=== PATIENT | female | born 1990 | race Two or more races ===

== ENCOUNTER 2016-07-18 21:52 | Inpatient (IN) | payer OTHER ==
[2016-07-18] MEDS ORDERED: DEXTROSE 5%-LACTATED RINGERS 500 ML IV ONE ×2 (22:45→23:45)
[2016-07-18 23:14] LABS: MCH 32.4 pg (25.7-33.7); MCHC 33.6 g/dl (32.0-36.0); MEAN CELL VOLUME 96.6 fl (80-96); MEAN PLT VOLUME 9.3 fl (7.5-11.1); PLATELET COUNT 172 K/MM3 (134-434); RDW 12.5 % (11.6-15.6); WHITE BLOOD COUNT 25.8 K/mm3 (4.0-10.0)
[2016-07-18 23:16] LABS: URINE APPEARANCE SLCLOUDY; URINE BILIRUBIN NEGATIVE (NEGATIVE); URINE COLOR DKYELLOW; URINE GLUCOSE (UA) NEGATIVE (NEGATIVE); URINE KETONE TRACE (NEGATIVE); URINE NITRITE POSITIVE (NEGATIVE); URINE UROBILINOGEN 2.0 E.U/dl E.U./dl (0.2-1.0)
[2016-07-18 23:18] LABS: URINE BLOOD 2+ (NEGATIVE); URINE LEUK ESTERASE 2+ (NEGATIVE); URINE PROTEIN 2+ (NEGATIVE)
[2016-07-18 23:22] LABS: URINE BACTERIA FEW /hpf (NONE SEEN); URINE MUCUS MANY; URINE RBC 128 /hpf (0-3); URINE WBC 60 /hpf (3-5)
[2016-07-18 23:46] LABS: ALBUMIN 2.7 g/dl (3.4-5.0); ALK PHOS 116 U/L (45-117); ANION GAP 10 (8-16); BILIRUBIN,TOTAL 0.2 mg/dL (0.2-1.0); CALCIUM 8.3 mg/dL (8.5-10.1); CO2 24 mmol/L (21-32); CREATININE 0.7 mg/dL (0.55-1.02); GLUCOSE,RANDOM 102 mg/dL (74-106); SGOT/AST 18 U/L (15-37); SGPT/ALT 14 U/L (12-78); TOT PROT 5.9 g/dl (6.4-8.2)
[2016-07-19] MEDS ORDERED: cefTRIAXone 1 GM/50 ML BAG (PRE-DOCKED) IVPB ONE (00:45)
[2016-07-19] MEDS: ELECTROLYTE-148 SOLN 1,000 ML IV SCH ×2 (01:00→09:01)
[2016-07-19] MEDS: ACETAMINOPHEN 325 MG TABLET (FP) PO PRN ×4 (01:05→20:53)
[2016-07-19 01:46] LABS: BASOPHIL 0.2 % (0-2.0); EOSINOPHIL 0.2 % (0-4.5); MCH 32.4 pg (25.7-33.7); MCHC 33.9 g/dl (32.0-36.0); MEAN CELL VOLUME 95.6 fl (80-96); MEAN PLT VOLUME 9.2 fl (7.5-11.1); NEUTROPHILS 87.2 % (42.8-82.8); PLATELET COUNT 166 K/MM3 (134-434); RDW 12.5 % (11.6-15.6); WHITE BLOOD COUNT 26.1 K/mm3 (4.0-10.0)
[2016-07-19 02:01] LABS: ANISOCYTOSIS 1+; PLATELET ESTIMATE ADEQUATE (NORMAL); SPHEROCYTE 1+
[2016-07-19 02:05] LABS: INR 1.05 (0.82-1.09); PROTHROMBIN TIME (PATIENT) 11.6 SEC (9.98-11.88)
[2016-07-19 02:05] LABS: URINE MARIJUANA THC POSITIVE ng/ml (CUTOFF=50)
[2016-07-19 02:18] LABS: ALBUMIN 2.7 g/dl (3.4-5.0); ALK PHOS 120 U/L (45-117); ANION GAP 12 (8-16); BILIRUBIN,TOTAL 0.2 mg/dL (0.2-1.0); CALCIUM 8.3 mg/dL (8.5-10.1); CO2 22 mmol/L (21-32); CREATININE 0.7 mg/dL (0.55-1.02); GLUCOSE,RANDOM 119 mg/dL (74-106); SGOT/AST 18 U/L (15-37); SGPT/ALT 13 U/L (12-78); TOT PROT 6.1 g/dl (6.4-8.2)
[2016-07-19 02:37] LABS: HIV 1 & 2 AB NEGATIVE; HIV 1 AGp24 NEGATIVE
[2016-07-19] MEDS: oxyCODONE HCL 5 MG TABLET PO PRN ×5 (04:20→23:46)
[2016-07-19 04:44] VITALS: BMI 27.3
[2016-07-19] MEDS ORDERED: oxyCODONE HCL 5 MG TABLET PO ONE (08:00)
[2016-07-19] MEDS ORDERED: ACETAMINOPHEN 325 MG TABLET (FP) PO ONE (09:30)
--- NOTE | 2016-07-19 09:39 | HP ---
Past Medical History - Primary Care Physician PCP:: Rubio Roger - Admission Chief Complaint: 31 weeks, fever, chills ,RT flank pain History of Present Illness: 25 yo f g 4 p2o12 edc 09/16/16 31 weeks , her care in [place], no cahrt available c/o of 2 days rt fank pain and fever, no dysuria, no n/v or diarrhea, History Source: Patient Limitations to Obtaining History: No Limitations - Past Medical History ...: 4 ...Para: 2 ...Term: 2 ...: 0 ...Spon : 1 ...Induced : 0 ...EDC by [facility]: 09/16/16 Heme/Onc: Yes: Anemia - Past Surgical History Hx Myomectomy: No Hx Transabdominal Cerclage: No - Smoking History Smoking history: Current every day smoker Have you smoked in the past 12 months: Yes Aproximately how many cigarettes per day: 5 - Alcohol/Substance Use Hx Alcohol Use: No History of Substance Use: reports: Cocaine, Marijuana - Social History History of Recent Travel: No Home Medications - Allergies Allergies/Adverse Reactions: Allergies Allergy/AdvReac Type Severity Reaction Status Date / Time No Known Allergies Allergy Verified 07/18/16 23:07 - Home Medications Home Medications: Ambulatory Orders Acetaminophen [Tylenol Extra Strength] 500 mg PO PRN PRN 07/18/16 Pnv95/Ferrous Fumarate/FA [ Vitamin Tablet] 1 each PO DAILY 07/18/16 Review of Systems - Review of Systems Constitutional: reports: Night Sweats Eyes: reports: No Symptoms HENT: reports: No Symptoms Neck: reports: No Symptoms Cardiovascular: reports: No Symptoms Respiratory: reports: No Symptoms Gastrointestinal: reports: Abdominal Pain Genitourinary: reports: Frequency, Urgency Breasts: reports: No Symptoms Reported Musculoskeletal: reports: Back Pain Integumentary: reports: No Symptoms Neurological: reports: No Symptoms Endocrine: reports: No Symptoms Hematology/Lymphatic: reports: No Symptoms Psychiatric: reports: No Symptoms Pain Intensity: 8 Physical Exam - Maternity Vital Signs: Vital Signs Temperature 101.7 F H 07/19/16 09:00 Pulse Rate 106 H 07/19/16 09:00 Respiratory Rate 20 07/19/16 09:00 Blood Pressure 107/50 07/19/16 09:00 O2 Sat by Pulse Oximetry (%) Constitutional: Yes: Well Nourished, No Distress, Calm Eyes: Yes: WNL, Conjunctiva Clear, EOM Intact HENT: Yes: WNL, Atraumatic, Normocephalic Neck: Yes: WNL, Supple, Trachea Midline Cardiovascular: Yes: WNL, Regular Rate and Rhythm Breast(s): Yes: WNL - Abdominal Exam/OB Fundal Height: 30 Number of Fetuses: Single Presentation: Vertex Contractions: Yes Regularity: Irritability Intensity: Unaware Monitor Mode: External Heart Rate Location: [facility] Category: I Accelerations: Uniform Decelerations: None - Vaginal Exam/OB Vaginal Bleediing: No Speculum Exam: No Dilatation (cm): 0 Effacement (%): 0 Amniotic Membrane Status: Intact Presentation: Vertex/Position Station: -3 - Physical Exam Musculoskeletal: Yes: Back Pain Extremities: Yes: WNL Edema: Yes Edema: LLE: Trace, RLE: Trace Deep Tendon Reflex Grade: Normal +2 - Labs Lab Results: CBC, BMP 07/19/16 01:15 07/19/16 01:15 Hemorrhage Risk Assessment - Risk Factors Medium Risk Factors: Yes: None High Risk Factors: Yes: None Risk Score: 1 Risk Level: Medium Risk Problem List - Problems (1) with 31 completed weeks gestation Code(s): Z3A.31 - 31 WEEKS GESTATION OF (2) Pyelonephritis affecting in third trimester Code(s): O23.03 - INFECTIONS OF KIDNEY IN , THIRD TRIMESTER N12 - TUBULO-INTERSTITIAL NEPHRITIS, NOT SPCF ACUTE OR CHRONIC (3) Substance abuse affecting in third trimester, antepartum Code(s): O99.323 - DRUG USE COMPLICATING , THIRD TRIMESTER F19.10 - OTHER PSYCHOACTIVE SUBSTANCE ABUSE, UNCOMPLICATED (4) Sepsis Code(s): A41.9 - SEPSIS, UNSPECIFIED ORGANISM Qualifiers: Sepsis type: sepsis due to unspecified organism Qualified Code(s): A41.9 - Sepsis, unspecified organism Assessment/Plan paln admit, iv hydration, septic work up, iv antibiotic. ID consult, fetla heart monitoring
--- NOTE | 2016-07-19 11:55 | PN ---
Progress Note (short form) - Note Progress Note: ID Consult dictated Probable acute R pyelonephritis Leukocytosis 31w IUP Pendng c/s empiric ceftriaxone 2gm IVPB q24h
[2016-07-19] MEDS ORDERED: CEFTRIAXONE 100 ML IVPB SCH (12:00)
[2016-07-19] MEDS ORDERED: SODIUM CHLORIDE 1,500 ML IV ONE (13:30)
[2016-07-19 13:58] LABS: BASOPHIL 0.1 % (0-2.0); EOSINOPHIL 0.1 % (0-4.5); MCHC 33.5 g/dl (32.0-36.0); MEAN CELL VOLUME 95.3 fl (80-96); MEAN PLT VOLUME 8.6 fl (7.5-11.1); NEUTROPHILS 83.6 % (42.8-82.8); PLATELET COUNT 137 K/MM3 (134-434); RDW 12.4 % (11.6-15.6); WHITE BLOOD COUNT 24.9 K/mm3 (4.0-10.0)
[2016-07-19] MEDS: SODIUM CHLORIDE 1,000 ML IV SCH ×2 (14:00→18:00)
[2016-07-19 14:12] LABS: INR 1.1 (0.82-1.09); PROTHROMBIN TIME (PATIENT) 12.1 SEC (9.98-11.88)
[2016-07-19 14:14] LABS: ACTIVATED PTT 29.6 SECONDS (26.9-34.4)
[2016-07-19 14:28] LABS: ALBUMIN 2.3 g/dl (3.4-5.0); ALK PHOS 104 U/L (45-117); ANION GAP 12 (8-16); BILIRUBIN,TOTAL 0.3 mg/dL (0.2-1.0); CALCIUM 7.8 mg/dL (8.5-10.1); CO2 21 mmol/L (21-32); CREATININE 0.6 mg/dL (0.55-1.02); GLUCOSE,RANDOM 77 mg/dL (74-106); SGOT/AST 18 U/L (15-37); SGPT/ALT 12 U/L (12-78); TOT PROT 5.3 g/dl (6.4-8.2)
--- NOTE | 2016-07-19 15:31 | CONS ---
DATE OF CONSULTATION: DATE OF DICTATION: 07/19/2016 INFECTIOUS DISEASE CONSULTATION HISTORY OF PRESENT ILLNESS: A 25-year-old female evaluated for possible pyelonephritis. The patient reports a 1-day history of right flank pain, fever and chills. Patient had developed onset of right flank pain with inability to walk secondary to the pain. She also experienced some subjective fever and chills. She denies any dysuria or hematuria. She denies recent urinary tract infection. PAST MEDICAL HISTORY: Positive for 31-week intrauterine , estimated date of confinement September 16, 2016. ALLERGIES: No known allergies. MEDICATION: Ceftriaxone. SOCIAL HISTORY: Positive for tobacco. Toxicology screen positive for cocaine and marijuana. LABORATORY DATA: White count 26.1, 87 neutrophils, 5 lymphocytes, 7 monocytes. Hematocrit 28.9, platelet count 166, BUN 6, creatinine 0.7. Total bilirubin 0.2, alkaline phosphatase 120, AST 18. Urinalysis 60 white cells, 128 red cells. Sonogram negative for hydronephrosis. PHYSICAL EXAMINATION: General: She is awake in no acute distress. Vital signs: Temperature 101.2, blood pressure 107/50, pulse 106 regular, respirations 20 per minute. HEENT: Sclerae anicteric. Cardiovascular: Heart sounds S1, S2. Respiratory: Lungs clear. Abdomen: Soft. Positive 31-week . Positive right CVA tenderness to palpation. No suprapubic tenderness. Extremities: Negative for edema. IMPRESSION: 1. Acute right pyelonephritis. 2. A 31-week intrauterine . Await culture results. Empiric antibiotic coverage with ceftriaxone 2 g IV piggyback daily pending cultures. Thank you for the kind referral. DELVIS GURROLA M.D. [id number]
--- NOTE | 2016-07-19 15:41 | CONSULT ---
Consultation: REQUESTING PROVIDER: Dr. Bejarano CONSULT REQUEST: We have been asked to medically evaluate this patient for ( specify). HISTORY OF PRESENT ILLNESS: 25 year old female , 31 weeks who presents to the hospital with flank pain, dysuria, fever, chills for 2 days. She didn't measure the temp. at home. She states that her pain is located in right lower back, radiates to right hip. The pain is 10/10, constant, no aggravating/allaviating factors. She is also complaining of generalized weakness and right sided face swelling that is present for 1-2 days. She denies having cavity, recent dental work. Last time she visited a dentist was 2-3 months ago. She denies hematuria, nausea, vomiting, diarrhea. She states that her is uncomplicated and she f/u with her [employer] in [place]. REVIEW OF SYSTEMS: CONSTITUTIONAL: fever, chills, diaphoresis, Absent: generalized weakness, malaise, weight change HEENT: Absent: rhinorrhea, nasal congestion, throat pain, throat swelling, difficulty swallowing, ear pain, eye pain, visual changes CARDIOVASCULAR: Absent: chest pain, syncope, palpitations, irregular heart rate, lightheadedness , peripheral edema RESPIRATORY: Absent: cough, shortness of breath, dyspnea with exertion, orthopnea, wheezing, stridor, hemoptysis GASTROINTESTINAL: Absent: abdominal pain, abdominal distension, nausea, vomiting, diarrhea, constipation, melena, hematochezia GENITOURINARY: dysuria, flank pain, Absent: frequency, urgency, hesitancy, genital pain MUSCULOSKELETAL: back pain, Absent: myalgia, arthralgia, joint swelling, neck pain SKIN: Absent: rash, itching, pallor NEUROLOGIC: Absent: headache, focal weakness or paresthesias, dizziness, unsteady gait, seizure, mental status changes, bladder or bowel incontinence PHYSICAL EXAMINATION Vital Signs - 24 hr 07/18/16 07/19/16 07/19/16 23:00 00:15 00:50 Temperature 98.3 F 99.9 F H 99.9 F H Pulse Rate 120 H 120 H Pulse Rate [ 120 H Left Brachial] Respiratory 18 20 20 Rate Blood Pressure 132/72 132/72 Blood Pressure 107/67 [Left Upper Arm ] 07/19/16 07/19/16 07/19/16 02:56 04:00 06:00 Temperature 98.6 F 97.6 F 98.3 F Pulse Rate 108 H 99 H 101 H Pulse Rate [ Left Brachial] Respiratory 20 20 18 Rate Blood Pressure 105/58 118/72 101/66 Blood Pressure [Left Upper Arm ] 07/19/16 07/19/16 07/19/16 07:00 08:00 09:00 Temperature 98.3 F 101.2 F H 101.7 F H Pulse Rate 102 H 109 H 106 H Pulse Rate [ Left Brachial] Respiratory 20 20 20 Rate Blood Pressure 115/62 114/66 107/50 Blood Pressure [Left Upper Arm ] 07/19/16 09:55 Temperature 101.1 F H Pulse Rate 111 H Pulse Rate [ Left Brachial] Respiratory 20 Rate Blood Pressure 112/61 Blood Pressure [Left Upper Arm ] GENERAL: Awake, alert, and fully oriented, in moderate distress. HEAD: Normal with no signs of trauma. EYES: extraocular movements intact, sclera anicteric, conjunctiva clear. No lid lag. EARS, NOSE, THROAT: oropharynx clear without exudates. Moist mucous membranes. NECK: Normal range of motion, supple without lymphadenopathy, JVD, or masses. LUNGS: Breath sounds equal, clear to auscultation bilaterally. No wheezes, and no crackles. No accessory muscle use. HEART: Regular rate and rhythm, normal S1 and S2 without murmur, rub or gallop. ABDOMEN: Gravid, soft, nontender, normoactive bowel sounds, no guarding, no rebound, no masses. MUSCULOSKELETAL: Normal range of motion at all joints. No bony deformities or tenderness. CVA tenderness on right side, tenderness over right hip. UPPER EXTREMITIES: No peripheral edema. LOWER EXTREMITIES: No peripheral edema. NEUROLOGICAL: Normal speech,no tongue deviation, normal gait. PSYCHIATRIC: Cooperative. Good eye contact. Appropriate mood and affect. SKIN: Warm, dry, normal turgor, no rashes, multiple tatoos. Laboratory Results - last 24 hr 07/18/16 07/18/16 07/18/16 23:01 23:01 23:01 WBC 25.8 H D RBC 3.06 L D Hgb 9.9 L D Hct 29.5 L D MCV 96.6 H MCHC 33.6 RDW 12.5 Plt Count 172 D MPV 9.3 D Neutrophils % 73.0 D Lymphocytes % 11.0 D Monocytes % 5.0 Eosinophils % 1.0 Basophils % Band Neutrophils 10.0 Platelet Estimate Adequate Platelet Comment Few large plts Anisocytosis 1+ Spherocytes 1+ INR PTT (Actin FS) Sodium 138 Potassium 3.7 Chloride 104 Carbon Dioxide 24 Anion Gap 10 BUN 7 D Creatinine 0.7 D Creat Clearance w eGFR > 60 Random Glucose 102 Lactic Acid Calcium 8.3 L Total Bilirubin 0.2 D AST 18 ALT 14 D Alkaline Phosphatase 116 D Total Protein 5.9 L Albumin 2.7 L D Urine Color Dkyellow Urine Appearance Slcloudy Urine pH 5.0 Ur Specific [place] 1.028 Urine Protein 2+ H Urine Glucose (UA) Negative Urine Ketones Trace H Urine Blood 2+ H Urine Nitrite Positive Urine Bilirubin Negative Urine Urobilinogen 2.0 e.u/dl H Ur Leukocyte Esterase 2+ H Urine RBC 128 Urine WBC 60 Ur Epithelial Cells Rare Urine Bacteria Few Urine Mucus Many Opiates Screen Methadone Screen Barbiturate Screen Phencyclidine Screen Ur Amphetamines Screen MDMA (Ecstasy) Screen Benzodiazepines Screen Cocaine Screen U Marijuana (THC) Screen RPR Titer HIV 1&2 Antibody Screen HIV P24 Antigen Blood Type Antibody Screen 07/19/16 07/19/16 07/19/16 01:15 01:15 01:15 WBC 26.1 H RBC 3.02 L Hgb 9.8 L Hct 28.9 L MCV 95.6 MCHC 33.9 RDW 12.5 Plt Count 166 MPV 9.2 Neutrophils % 87.2 H Lymphocytes % 5.3 L D Monocytes % 7.1 Eosinophils % 0.2 Basophils % 0.2 Band Neutrophils Platelet Estimate Platelet Comment Anisocytosis Spherocytes INR 1.05 PTT (Actin FS) Sodium 138 Potassium 3.5 Chloride 104 Carbon Dioxide 22 Anion Gap 12 BUN 6 L Creatinine 0.7 Creat Clearance w eGFR > 60 Random Glucose 119 H Lactic Acid Calcium 8.3 L Total Bilirubin 0.2 AST 18 ALT 13 Alkaline Phosphatase 120 H Total Protein 6.1 L Albumin 2.7 L Urine Color Urine Appearance Urine pH Ur Specific [place] Urine Protein Urine Glucose (UA) Urine Ketones Urine Blood Urine Nitrite Urine Bilirubin Urine Urobilinogen Ur Leukocyte Esterase Urine RBC Urine WBC Ur Epithelial Cells Urine Bacteria Urine Mucus Opiates Screen Methadone Screen Barbiturate Screen Phencyclidine Screen Ur Amphetamines Screen MDMA (Ecstasy) Screen Benzodiazepines Screen Cocaine Screen U Marijuana (THC) Screen RPR Titer HIV 1&2 Antibody Screen HIV P24 Antigen Blood Type Antibody Screen 07/19/16 07/19/16 07/19/16 01:15 01:15 01:15 WBC RBC Hgb Hct MCV MCHC RDW Plt Count MPV Neutrophils % Lymphocytes % Monocytes % Eosinophils % Basophils % Band Neutrophils Platelet Estimate Platelet Comment Anisocytosis Spherocytes INR PTT (Actin FS) 29.1 Sodium Potassium Chloride Carbon Dioxide Anion Gap BUN Creatinine Creat Clearance w eGFR Random Glucose Lactic Acid Calcium Total Bilirubin AST ALT Alkaline Phosphatase Total Protein Albumin Urine Color Urine Appearance Urine pH Ur Specific [place] Urine Protein Urine Glucose (UA) Urine Ketones Urine Blood Urine Nitrite Urine Bilirubin Urine Urobilinogen Ur Leukocyte Esterase Urine RBC Urine WBC Ur Epithelial Cells Urine Bacteria Urine Mucus Opiates Screen Methadone Screen Barbiturate Screen Phencyclidine Screen Ur Amphetamines Screen MDMA (Ecstasy) Screen Benzodiazepines Screen Cocaine Screen U Marijuana (THC) Screen RPR Titer HIV 1&2 Antibody Screen Negative HIV P24 Antigen Negative Blood Type O POSITIVE Antibody Screen Negative 07/19/16 07/19/16 07/19/16 01:15 01:20 01:45 WBC RBC Hgb Hct MCV MCHC RDW Plt Count MPV Neutrophils % Lymphocytes % Monocytes % Eosinophils % Basophils % Band Neutrophils Platelet Estimate Platelet Comment Anisocytosis Spherocytes INR PTT (Actin FS) Sodium Potassium Chloride Carbon Dioxide Anion Gap BUN Creatinine Creat Clearance w eGFR Random Glucose Lactic Acid Calcium Total Bilirubin AST ALT Alkaline Phosphatase Total Protein Albumin Urine Color Urine Appearance Urine pH Ur Specific [place] Urine Protein Urine Glucose (UA) Urine Ketones Urine Blood Urine Nitrite Urine Bilirubin Urine Urobilinogen Ur Leukocyte Esterase Urine RBC Urine WBC Ur Epithelial Cells Urine Bacteria Urine Mucus Opiates Screen Negative Methadone Screen Negative Barbiturate Screen Negative Phencyclidine Screen Negative Ur Amphetamines Screen Negative MDMA (Ecstasy) Screen Negative Benzodiazepines Screen Negative Cocaine Screen Positive U Marijuana (THC) Screen Positive RPR Titer Nonreactive HIV 1&2 Antibody Screen HIV P24 Antigen Blood Type O POSITIVE Antibody Screen 07/19/16 07/19/16 07/19/16 13:40 13:52 13:52 WBC 24.9 H RBC 2.89 L Hgb 9.2 L Hct 27.5 L MCV 95.3 MCHC 33.5 RDW 12.4 Plt Count 137 MPV 8.6 Neutrophils % 83.6 H Lymphocytes % 6.3 L Monocytes % 9.9 Eosinophils % 0.1 Basophils % 0.1 Band Neutrophils Platelet Estimate Platelet Comment Anisocytosis Spherocytes INR 1.10 PTT (Actin FS) 29.6 Sodium Potassium Chloride Carbon Dioxide Anion Gap BUN Creatinine Creat Clearance w eGFR Random Glucose Lactic Acid 0.844 Calcium Total Bilirubin AST ALT Alkaline Phosphatase Total Protein Albumin Urine Color Urine Appearance Urine pH Ur Specific [place] Urine Protein Urine Glucose (UA) Urine Ketones Urine Blood Urine Nitrite Urine Bilirubin Urine Urobilinogen Ur Leukocyte Esterase Urine RBC Urine WBC Ur Epithelial Cells Urine Bacteria Urine Mucus Opiates Screen Methadone Screen Barbiturate Screen Phencyclidine Screen Ur Amphetamines Screen MDMA (Ecstasy) Screen Benzodiazepines Screen Cocaine Screen U Marijuana (THC) Screen RPR Titer HIV 1&2 Antibody Screen HIV P24 Antigen Blood Type Antibody Screen 07/19/16 13:52 WBC RBC Hgb Hct MCV MCHC RDW Plt Count MPV Neutrophils % Lymphocytes % Monocytes % Eosinophils % Basophils % Band Neutrophils Platelet Estimate Platelet Comment Anisocytosis Spherocytes INR PTT (Actin FS) Sodium 134 L Potassium 3.4 L Chloride 101 Carbon Dioxide 21 Anion Gap 12 BUN 3 L D Creatinine 0.6 Creat Clearance w eGFR > 60 Random Glucose 77 D Lactic Acid Calcium 7.8 L Total Bilirubin 0.3 D AST 18 ALT 12 Alkaline Phosphatase 104 Total Protein 5.3 L Albumin 2.3 L Urine Color Urine Appearance Urine pH Ur Specific [place] Urine Protein Urine Glucose (UA) Urine Ketones Urine Blood Urine Nitrite Urine Bilirubin Urine Urobilinogen Ur Leukocyte Esterase Urine RBC Urine WBC Ur Epithelial Cells Urine Bacteria Urine Mucus Opiates Screen Methadone Screen Barbiturate Screen Phencyclidine Screen Ur Amphetamines Screen MDMA (Ecstasy) Screen Benzodiazepines Screen Cocaine Screen U Marijuana (THC) Screen RPR Titer HIV 1&2 Antibody Screen HIV P24 Antigen Blood Type Antibody Screen Active Medications Generic Name Dose Route Start Last Admin Trade Name Freq PRN Reason Stop Dose Admin Acetaminophen 325 mg 07/19/16 02:09 07/19/16 08:12 Tylenol - PO 325 mg Q6H PRN Administration PAIN Acetaminophen 650 mg 07/19/16 02:10 07/19/16 01:05 Tylenol - PO 650 mg Q6H PRN Administration FEVER OR PAIN Parenteral Electrolytes 1,000 mls @ 125 mls/hr 07/19/16 01:00 07/19/16 09:01 Plasma-Lyte 148 - IV 125 mls/hr ASDIR DAVID Administration Ceftriaxone Sodium 100 mls @ 200 mls/hr 07/19/16 12:00 07/19/16 13:39 Rocephin 2gm Ivpb (Pre-Docked) IVPB 200 mls/hr DAILY DAVID Administration Oxycodone HCl 5 mg 07/19/16 02:09 07/19/16 14:19 Roxicodone - PO 5 mg Q6H PRN Administration PAIN US kidney: No signs of hydrothorax, no acute pathology ASSESSMENT/PLAN: 25 year old female , 31 weeks who presents to the hospital with flank pain, dysuria, fever, chills for 2 days. She didn't measure the temp. at home. She states that her pain is located in right lower back, radiates to right hip. The pain is 10/10, constant, no aggravating/allaviating factors. She is also complaining of generalized weakness and right sided face swelling that is present for 1-2 days. She is admitted for sepsis due pyelonephritis. Sepsis due to pyelonephritis: -LA normalized -monitor VS -IVF at rate 125 ml/hr -empiric Ceftriaxone 2 g IV qd -Tylenol 650 mg PO Q6h -Roxicodone 5 mg Q6h PRN Right sided face swelling: -continue empiric Ceftriaxone for now -f/u with ID Hyponatremia: -cont IVF Hypopotasemia: -monitor ; continue vit., -f/u [employer] recomm. -transvag. US done, WNL Polysubstance abuse: -positive for cocaine and Marihuana -the pt denies taking drugs -counseling F/E/N: NS/low Na,K/regular Dispo: We will continue to follow the patient. Thank you for this consultative opportunity. Problem List - Problems (1) with 31 completed weeks gestation Code(s): Z3A.31 - 31 WEEKS GESTATION OF (2) Pyelonephritis affecting in third trimester Code(s): O23.03 - INFECTIONS OF KIDNEY IN , THIRD TRIMESTER N12 - TUBULO-INTERSTITIAL NEPHRITIS, NOT SPCF ACUTE OR CHRONIC (3) Sepsis Code(s): A41.9 - SEPSIS, UNSPECIFIED ORGANISM Qualifiers: Sepsis type: sepsis due to unspecified organism Qualified Code(s): A41.9 - Sepsis, unspecified organism (4) Substance abuse affecting in third trimester, antepartum Code(s): O99.323 - DRUG USE COMPLICATING , THIRD TRIMESTER F19.10 - OTHER PSYCHOACTIVE SUBSTANCE ABUSE, UNCOMPLICATED Visit type - Emergency Visit Emergency Visit: Yes ED Registration Date: 07/19/16 Care time: The patient presented to the Emergency Department on the above date and was hospitalized for further evaluation of their emergent condition. - New Patient This patient is new to me today: Yes Date on this admission: 07/19/16 - Critical Care Critical Care patient: No
--- NOTE | 2016-07-19 18:57 | PN ---
Teaching Attending Note Name of Resident: Megan Nice ATTENDING PHYSICIAN STATEMENT I saw and evaluated the patient. I reviewed the resident's note and discussed the case with the resident. I agree with the resident's findings and plan as documented. SUBJECTIVE: This is a 25-year-old woman who is 31 weeks who was admitted yesterday with right flank pain and fever for 2 days. She denies dysuria, urinary frequency, hematuria. She had WBC 25.8, hgb 9.9, HR 120, temp 98.3. She was treated with Rocephin for sepsis secondary to pyelonephritis. Today she has had fever up to 102.7. OBJECTIVE: Vital Signs Period Temp Pulse Resp BP Sys/Rivera Pulse Ox Last 24 Hr 97.6 F-102.7 F 99-121 18-22 101-146/50-77 HEART: S1 S2, tachycardic LUNGS: Clear ABDOMEN: Soft, non-tender, normal BS, (+) right CVA tenderness EXTREMITIES: No edema ASSESSMENT AND PLAN: This is a 25-year-old woman who was admitted for sepsis and acute pyelonephritis. Today she is febrile and tachycardic. 1. Sepsis secondary to acute pyelonephritis - Continue Rocephin - IV fluid - Follow up blood and urine cultures
[2016-07-20] MEDS: ACETAMINOPHEN 325 MG TABLET (FP) PO PRN ×5 (02:08→20:45)
[2016-07-20] MEDS: oxyCODONE HCL 5 MG TABLET PO PRN ×3 (05:21→20:46)
--- NOTE | 2016-07-20 07:15 | PN ---
Mental Health Exam - Mental Status Exam Alert and Oriented to: Time, Place, Person Cognitive Function: Good Patient Appearance: Unkempt Mood: Sad, Suspicious, Apprehensive Affect: Labile Patient Behavior: Crying, Cooperative Speech Pattern: Clear Voice Loudness: Mildly Loud Thought Process: Intact Thought Disorder: Not Present Hallucinations: None Suicidal Ideation: None, No Plan Homicidal Ideation: None Insight/Judgement: Impaired (related to life descisions, recent substance use.) Sleep: Well Appetite: Fair (does not eat hospital food) Muscle strength/Tone: Normal
--- NOTE | 2016-07-20 07:21 | PN ---
Progress Note, Physician Chief Complaint: patient is 25 yo female 31 weeks recent substance use of cocaine, alchol and marjuanna. Cites the reason for democrat as her partner was away for 3- 4 days with his primary family. Greg started to work at 14 but got involved in friends who democrat at weekends, did not believe it would come to current situation where [facility] is now involved due to pos urines. No past psych history, no walker or severe depression. - Current Medication List Current Medications: Active Medications Acetaminophen (Tylenol -) 325 mg PO Q6H PRN PRN Reason: PAIN Last Admin: 07/19/16 08:12 Dose: 325 mg Acetaminophen (Tylenol -) 650 mg PO Q6H PRN PRN Reason: FEVER OR PAIN Last Admin: 07/20/16 02:08 Dose: 650 mg Parenteral Electrolytes (Plasma-Lyte 148 -) 1,000 mls @ 125 mls/hr IV ASDIR [facility] Last Admin: 07/19/16 09:01 Dose: 125 mls/hr Ceftriaxone Sodium (Rocephin 2gm Ivpb (Pre-Docked)) 100 mls @ 200 mls/hr IVPB DAILY [facility] Last Admin: 07/19/16 13:39 Dose: 200 mls/hr Sodium Chloride (Normal Saline -) 1,000 mls @ 125 mls/hr IV ASDIR [facility] Last Admin: 07/19/16 18:00 Dose: 125 mls/hr Oxycodone HCl (Roxicodone -) 5 mg PO Q6H PRN PRN Reason: PAIN Last Admin: 07/20/16 05:21 Dose: 5 mg - Objective Vital Signs: Vital Signs Temperature 97.5 F L 07/20/16 06:00 Pulse Rate 80 07/20/16 06:00 Respiratory Rate 18 07/20/16 06:00 Blood Pressure 97/56 07/20/16 06:00 O2 Sat by Pulse Oximetry (%) Psychiatric: Yes: WNL (tearful and labile.), Alert, Oriented Labs: CBC, BMP 07/19/16 13:52 07/19/16 13:52 INR, PTT INR 1.10 (0.82-1.09) 07/19/16 13:52 Assessment/Plan client is being treated for severe infection currently. Substance abuse history, recomend consult. 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 Denies any criminal, but family court and small claim due to back rent owed. Harm reduction as a goal is an option.
--- NOTE | 2016-07-20 08:21 | PN ---
Progress Note (short form) - Note Progress Note: 31 weeks IUP / Ac pyelonephritis / substance abuse hosp stay #2 day c/o pain scale 10/10, Rt Flank c/o pain & swelling on Rt side of lower jaw, h/o infected tooth lower Rt Molar ? 2nd , pt does not allow to palpate due to tenderness FM are active No cramps No bleeding P/a 30 weeks size uterus . ? breech presentation . FM active noted marked Rt CVA tenderness . No LT CVA tendernes.. No edema of feet no calf tendrness RS cta Selected Entries 07/20/16 06:00 Temperature 97.5 F L Pulse Rate 80 Blood Pressure 97/56 Laboratory Tests 07/19/16 07/19/16 07/19/16 01:15 01:15 01:20 WBC Hgb Hct Plt Count INR PTT (Actin FS) Sodium Potassium Chloride Carbon Dioxide BUN Creatinine Random Glucose Lactic Acid AST ALT Cocaine Screen Positive U Marijuana (THC) Screen Positive Hep Bs Antigen Negative HIV 1&2 Antibody Screen Negative HIV P24 Antigen Negative Rubella IgG Antibody < 0.90 L 07/19/16 07/19/16 07/19/16 13:40 13:52 13:52 WBC 24.9 H Hgb 9.2 L Hct 27.5 L Plt Count 137 INR 1.10 PTT (Actin FS) 29.6 Sodium Potassium Chloride Carbon Dioxide BUN Creatinine Random Glucose Lactic Acid 0.844 AST ALT Cocaine Screen U Marijuana (THC) Screen Hep Bs Antigen HIV 1&2 Antibody Screen HIV P24 Antigen Rubella IgG Antibody 07/19/16 07/19/16 13:52 17:30 WBC Hgb Hct Plt Count INR PTT (Actin FS) Sodium 134 L Potassium 3.4 L Chloride 101 Carbon Dioxide 21 BUN 3 L D Creatinine 0.6 Random Glucose 77 D Lactic Acid 0.832 AST 18 ALT 12 Cocaine Screen pos U Marijuana (THC) Screen pos Hep Bs Antigen nr HIV 1&2 Antibody Screen neg HIV P24 Antigen neg Rubella IgG Antibody immune urine culture pending one of blood culture shows anaerobic org positive Ass 31 weeks , Ac Pyelonephritis , cocaine , marijuana substance abuse , possible tooth infection. Plan ct IV Ceftriaxone 2gm daily ct NST q shift
[2016-07-20 08:53] LABS: MCH 32.2 pg (25.7-33.7); MCHC 33.1 g/dl (32.0-36.0); MEAN CELL VOLUME 97.3 fl (80-96); MEAN PLT VOLUME 8.5 fl (7.5-11.1); PLATELET COUNT 148 K/MM3 (134-434); RDW 12.6 % (11.6-15.6); WHITE BLOOD COUNT 21.2 K/mm3 (4.0-10.0)
[2016-07-20 09:32] LABS: CREATININE 0.6 mg/dL (0.55-1.02)
[2016-07-20] MEDS ORDERED: CEFTRIAXONE 2 GM in DEXTROSE 5%-WATER - 100 ML IVPB SCH (10:00)
--- NOTE | 2016-07-20 10:51 | PN ---
Progress Note, Physician History of Present Illness: Still with R flank pain No c/o dysuria/ hematuria Temps down WBC remains elevated BC, Urine c/s GNR - Current Medication List Current Medications: Active Medications Acetaminophen (Tylenol -) 325 mg PO Q6H PRN PRN Reason: PAIN Last Admin: 07/19/16 08:12 Dose: 325 mg Acetaminophen (Tylenol -) 650 mg PO Q6H PRN PRN Reason: FEVER OR PAIN Last Admin: 07/20/16 09:20 Dose: 650 mg Clindamycin HCl (Cleocin -) 300 mg PO TID [facility] Parenteral Electrolytes (Plasma-Lyte 148 -) 1,000 mls @ 125 mls/hr IV ASDIR [facility] Last Admin: 07/19/16 09:01 Dose: 125 mls/hr Sodium Chloride (Normal Saline -) 1,000 mls @ 125 mls/hr IV ASDIR [facility] Last Admin: 07/19/16 18:00 Dose: 125 mls/hr Ceftriaxone Sodium 2 gm/ (Dextrose) 100 mls @ 200 mls/hr IVPB DAILY [facility] Last Admin: 07/20/16 10:39 Dose: 200 mls/hr Oxycodone HCl (Roxicodone -) 5 mg PO Q6H PRN PRN Reason: PAIN Last Admin: 07/20/16 05:21 Dose: 5 mg - Objective Vital Signs: Vital Signs Temperature 98.3 F 07/20/16 09:10 Pulse Rate 100 H 07/20/16 09:10 Respiratory Rate 18 07/20/16 09:10 Blood Pressure 94/55 07/20/16 09:10 O2 Sat by Pulse Oximetry (%) Constitutional: Yes: No Distress Eyes: Yes: Conjunctiva Clear Cardiovascular: Yes: Regular Rate and Rhythm, S1, S2 Respiratory: Yes: CTA Bilaterally Gastrointestinal: Yes: Normal Bowel Sounds, Soft, Other (+ gravid uterus) Labs: CBC, BMP 07/20/16 08:40 07/20/16 08:40 INR, PTT INR 1.10 (0.82-1.09) 07/19/16 13:52 Assessment/Plan Gram Negative sepsis Acute R pyelonephritis 31 w IUP Pending identification of blood/ urine isolate, substitute cefepime q8h
[2016-07-20] MEDS: ELECTROLYTE-148 SOLN 1,000 ML IV SCH (11:04)
[2016-07-20] MEDS: SODIUM CHLORIDE 1,000 ML IV SCH (12:53)
--- NOTE | 2016-07-20 14:01 | PN ---
Physical Exam: SUBJECTIVE: Patient seen and examined. She is still complaining of flank pain on right side but is better today. She is still complaining of right sided face swelling, tooth pain. OBJECTIVE: Vital Signs Period Temp Pulse Resp BP Sys/Rivera Pulse Ox Last 24 Hr 97.5 F-98.9 F 80-113 18-20 94-112/54-67 GENERAL: The patient is awake, alert, and fully oriented, in no acute distress. HEAD: Normal with no signs of trauma. EYES: extraocular movements intact, sclera anicteric, conjunctiva clear. ENT: oropharynx clear without exudates, moist mucous membranes, right sided face swelling. NECK: Trachea midline, full range of motion, supple. LUNGS: Breath sounds equal, clear to auscultation bilaterally, no wheezes, no crackles, no accessory muscle use. HEART: Regular rate and rhythm, S1, S2 without murmur, rub or gallop. ABDOMEN: Gravid, soft, nontender, normoactive bowel sounds, no guarding, no rebound, no hepatosplenomegaly, no masses, CVA on right side. EXTREMITIES: no edema. NEUROLOGICAL: Normal speech, gait not observed. PSYCH: Normal mood, normal affect. SKIN: Warm, dry, normal turgor, no rashes, tatoo on abdomen, chest, UE. Laboratory Results - last 24 hr 07/19/16 07/19/16 07/19/16 01:15 13:40 13:52 WBC 24.9 H RBC 2.89 L Hgb 9.2 L Hct 27.5 L MCV 95.3 MCHC 33.5 RDW 12.4 Plt Count 137 MPV 8.6 Neutrophils % 83.6 H Lymphocytes % 6.3 L Monocytes % 9.9 Eosinophils % 0.1 Basophils % 0.1 INR PTT (Actin FS) Sodium Potassium Chloride Carbon Dioxide Anion Gap BUN Creatinine Creat Clearance w eGFR Random Glucose Lactic Acid 0.844 Calcium Total Bilirubin AST ALT Alkaline Phosphatase Total Protein Albumin Hep Bs Antigen Negative Rubella IgG Antibody < 0.90 L 07/19/16 07/19/16 07/19/16 13:52 13:52 17:30 WBC RBC Hgb Hct MCV MCHC RDW Plt Count MPV Neutrophils % Lymphocytes % Monocytes % Eosinophils % Basophils % INR 1.10 PTT (Actin FS) 29.6 Sodium 134 L Potassium 3.4 L Chloride 101 Carbon Dioxide 21 Anion Gap 12 BUN 3 L D Creatinine 0.6 Creat Clearance w eGFR > 60 Random Glucose 77 D Lactic Acid 0.832 Calcium 7.8 L Total Bilirubin 0.3 D AST 18 ALT 12 Alkaline Phosphatase 104 Total Protein 5.3 L Albumin 2.3 L Hep Bs Antigen Rubella IgG Antibody 07/20/16 07/20/16 08:40 08:40 WBC 21.2 H RBC 2.91 L Hgb 9.4 L Hct 28.3 L MCV 97.3 H MCHC 33.1 RDW 12.6 Plt Count 148 MPV 8.5 Neutrophils % Y Lymphocytes % Y Monocytes % Eosinophils % Basophils % INR PTT (Actin FS) Sodium 140 Potassium 3.3 L Chloride 106 Carbon Dioxide 22 Anion Gap 12 BUN 3 L Creatinine 0.6 Creat Clearance w eGFR Random Glucose 108 H D Lactic Acid Calcium 8.0 L Total Bilirubin AST ALT Alkaline Phosphatase Total Protein Albumin Hep Bs Antigen Rubella IgG Antibody Active Medications Generic Name Dose Route Start Last Admin Trade Name Freq PRN Reason Stop Dose Admin Acetaminophen 325 mg 07/19/16 02:09 07/20/16 12:51 Tylenol - PO 325 mg Q6H PRN Administration PAIN Acetaminophen 650 mg 07/19/16 02:10 07/20/16 09:20 Tylenol - PO 650 mg Q6H PRN Administration FEVER OR PAIN Clindamycin HCl 300 mg 07/20/16 14:00 Cleocin - PO TID DAVID Parenteral Electrolytes 1,000 mls @ 125 mls/hr 07/19/16 01:00 07/20/16 11:04 Plasma-Lyte 148 - IV Not Given ASDIR DAVID Sodium Chloride 1,000 mls @ 125 mls/hr 07/19/16 13:30 07/20/16 12:53 Normal Saline - IV 125 mls/hr ASDIR DAVID Administration Cefepime HCl 2 gm/ Dextrose 100 mls @ 200 mls/hr 07/20/16 18:00 IVPB Q8H-IV DAVID Oxycodone HCl 5 mg 07/19/16 02:09 07/20/16 12:52 Roxicodone - PO 5 mg Q6H PRN Administration PAIN US kidney: No signs of hydrothorax, no acute pathology ASSESSMENT/PLAN: 25 year old female , 31 weeks who presents to the hospital with flank pain, dysuria, fever, chills for 2 days. She was found to be tychypneic, elevated WBC. She is also complaining of generalized weakness and right sided face swelling that is present for 1-2 days. She is admitted for sepsis due pyelonephritis. Sepsis due to pyelonephritis: -LA normalized -monitor VS -IVF at rate 125 ml/hr -empiric Ceftriaxone 2 g IV qd changed to Cefepime 2 g IV Q8H, added Clindamycin to cover oropharynx infection -awaiting second blood culture set -Tylenol 650 mg PO Q6h -Roxicodone 5 mg Q6h PRN Right sided face swelling: -continue Cefepime and Clindamycin -f/u with ID Hyponatremia: -cont IVF Hypopotasemia: -monitor ; continue vit., -f/u DOOR CLOSER MECHANIC recomm. -transvag. US done, WNL -consider K replacement Polysubstance abuse: -positive for cocaine and Marihuana -the pt denies taking drugs -counseling F/E/N: NS/low Na,K/regular Dispo: We will continue to follow the patient. Thank you for this consultative opportunity. Problem List - Problems (1) with 31 completed weeks gestation Code(s): Z3A.31 - 31 WEEKS GESTATION OF (2) Pyelonephritis affecting in third trimester Code(s): O23.03 - INFECTIONS OF KIDNEY IN , THIRD TRIMESTER N12 - TUBULO-INTERSTITIAL NEPHRITIS, NOT SPCF ACUTE OR CHRONIC (3) Sepsis Code(s): A41.9 - SEPSIS, UNSPECIFIED ORGANISM Qualifiers: Sepsis type: sepsis due to unspecified organism Qualified Code(s): A41.9 - Sepsis, unspecified organism (4) Substance abuse affecting in third trimester, antepartum Code(s): O99.323 - DRUG USE COMPLICATING , THIRD TRIMESTER F19.10 - OTHER PSYCHOACTIVE SUBSTANCE ABUSE, UNCOMPLICATED Visit type - Emergency Visit Emergency Visit: Yes ED Registration Date: 07/19/16 Care time: The patient presented to the Emergency Department on the above date and was hospitalized for further evaluation of their emergent condition. - New Patient This patient is new to me today: No - Critical Care Critical Care patient: No - Discharge Referral Referred to [facility] Med P.C.: No
[2016-07-20] MEDS: CLINDAMYCIN HCL 150 MG CAPSULE (FP) PO SCH ×2 (14:02→21:53)
--- NOTE | 2016-07-20 15:40 | PN ---
Teaching Attending Note Name of Resident: Megan Nice ATTENDING PHYSICIAN STATEMENT I saw and evaluated the patient. I reviewed the resident's note and discussed the case with the resident. I agree with the resident's findings and plan as documented. SUBJECTIVE: no fever ro chills, R flank pain is better today . has pain in R tooth OBJECTIVE: NAD . MMM, R lower first molar with broken tooth, no discharge or erythema on gum . R lower face swelling CV: RRR, 2/6 Sm at base Lungs: CTAB ext : no edema Abd ; gravid abd , no TTP R CVA enderness ASSESSMENT AND PLAN: 25 y/o lady with h/o substance abuse , ( 31 weeks ) , who presented with abd pain , fave , was found to have R pyelonephritis 1- Sepsis due to R pyelonephritis : WBc improved . Blood cx with G-rods and U cx with lactose fermenting G- Rods. - follow repeat blood cx. - appreciate ID recs with switching to cefepim - cont IVF 2- R lower tooth infection : start clindamycin f/u with dentist as out pt . unfortunately we have no dentist here 3- polyysubstance use : cocain and Marijuana . denied. counseled 4- : per SCHEDULE SUPERVISOR advise replacement of K rest per SCHEDULE SUPERVISOR
[2016-07-20] MEDS: CEFEPIME 2 GM in DEXTROSE 5%-WATER - 100 ML IVPB SCH (17:57)
[2016-07-20] MEDS ORDERED: CEFEPIME HCL 2 GM VIAL (RESTRICTED TO ID) IVPB SCH (18:00)
[2016-07-21] MEDS: IBUPROFEN 600 MG TABLET (FP) PO PRN ×3 (00:10→17:05)
[2016-07-21] MEDS: CEFEPIME 2 GM in DEXTROSE 5%-WATER - 100 ML IVPB SCH ×2 (01:20→11:19)
[2016-07-21] MEDS: oxyCODONE HCL 5 MG TABLET PO PRN ×3 (02:38→20:52)
[2016-07-21] MEDS: ACETAMINOPHEN 325 MG TABLET (FP) PO PRN ×4 (02:41→23:24)
[2016-07-21] MEDS: CLINDAMYCIN HCL 150 MG CAPSULE (FP) PO SCH (06:16)
--- NOTE | 2016-07-21 08:32 | PN ---
Progress Note (short form) - Note Progress Note: 25 y/o admitted with pyelo at 31 weeks, feeling better. Denies ctx or vaginal bleeding. Continue med fu and ob monitoring.
[2016-07-21 09:14] LABS: BASOPHIL 0.1 % (0-2.0); EOSINOPHIL 1.6 % (0-4.5); MCH 32.3 pg (25.7-33.7); MCHC 33.5 g/dl (32.0-36.0); MEAN CELL VOLUME 96.6 fl (80-96); NEUTROPHILS 75.4 % (42.8-82.8); PLATELET COUNT 149 K/MM3 (134-434); RDW 12.3 % (11.6-15.6); WHITE BLOOD COUNT 12.9 K/mm3 (4.0-10.0)
[2016-07-21 09:32] LABS: CALCIUM 7.9 mg/dL (8.5-10.1); CREATININE 0.4 mg/dL (0.55-1.02)
[2016-07-21] MEDS: CLINDAMYCIN 300 MG PREMIX IVPB 50 ML IVPB SCH ×2 (12:01→17:05)
--- NOTE | 2016-07-21 13:17 | PN ---
Progress Note, Physician History of Present Illness: Feeling better Less R flank pain No dysuria No c/o fever/ chills - Current Medication List Current Medications: Active Medications Acetaminophen (Tylenol -) 325 mg PO Q6H PRN PRN Reason: PAIN Last Admin: 07/21/16 02:41 Dose: 325 mg Acetaminophen (Tylenol -) 650 mg PO Q6H PRN PRN Reason: FEVER OR PAIN Last Admin: 07/20/16 17:12 Dose: 650 mg Parenteral Electrolytes (Plasma-Lyte 148 -) 1,000 mls @ 125 mls/hr IV ASDIR [facility] Last Admin: 07/20/16 11:04 Dose: Not Given Sodium Chloride (Normal Saline -) 1,000 mls @ 125 mls/hr IV ASDIR [facility] Last Admin: 07/20/16 12:53 Dose: 125 mls/hr Cefepime HCl 2 gm/ Dextrose 100 mls @ 200 mls/hr IVPB Q8H-IV DAVID Last Admin: 07/21/16 11:19 Dose: 200 mls/hr Clindamycin Phosphate (Cleocin 300 Mg Premix Ivpb) 50 mls @ 100 mls/hr IVPB Q8H -IV DAVID Last Admin: 07/21/16 12:01 Dose: 100 mls/hr Ibuprofen (Motrin -) 600 mg PO Q6H PRN PRN Reason: FEVER Last Admin: 07/21/16 09:53 Dose: 600 mg Oxycodone HCl (Roxicodone -) 5 mg PO Q6H PRN PRN Reason: PAIN Last Admin: 07/21/16 02:38 Dose: 5 mg - Objective Vital Signs: Vital Signs Temperature 97.5 F L 07/21/16 09:07 Pulse Rate 84 07/21/16 09:07 Respiratory Rate 18 07/21/16 09:07 Blood Pressure 95/56 07/21/16 09:07 O2 Sat by Pulse Oximetry (%) Constitutional: Yes: No Distress Eyes: Yes: Conjunctiva Clear Cardiovascular: Yes: Regular Rate and Rhythm, S1, S2 Respiratory: Yes: CTA Bilaterally Gastrointestinal: Yes: Normal Bowel Sounds, Soft, Other (gravid uterus). No: Tenderness Genitourinary: Yes: CVA Tenderness - Right Edema: No Labs: CBC, BMP 07/21/16 08:45 07/21/16 08:45 INR, PTT INR 1.10 (0.82-1.09) 07/19/16 13:52 Assessment/Plan Gram Negative bacteremia/ sepsis secomdary to source Acute R pyelonephritis 31 w IUP Substitute cefazolin 2gm IVPB q8h Will need 7d course of IV antibiotics followed by 7d course of po Plan discussed with patient and her mother at bedside
[2016-07-21] MEDS ORDERED: CLINDAMYCIN HCL 150 MG CAPSULE (FP) PO SCH (14:00)
--- NOTE | 2016-07-21 14:54 | PN ---
Teaching Attending Note Name of Resident: Megan Nice ATTENDING PHYSICIAN STATEMENT I saw and evaluated the patient. I reviewed the resident's note and discussed the case with the resident. I agree with the resident's findings and plan as documented. SUBJECTIVE: no fever or chills, no abd pain , tooth pain is better . Lost her IV line OBJECTIVE: NAD . MMM, R lower first molar with broken tooth, no discharge or erythema on gum . R lower face swelling, slightly improved from yesterday . oropharynx with nl appearance CV: RRR, 2/6 SM at base Lungs: CTAB ext : no edema Abd ; gravid abd , no TTP R CVA tenderness ASSESSMENT AND PLAN: 25 y/o lady with h/o substance abuse , ( 31 weeks ) , who presented with abd pain , fave , was found to have R pyelonephritis 1- Sepsis due to R pyelonephritis : WBc improved . Blood cx with and urine cx with Klebsiella species - switched to cefazolin depending on sensitivity . - dc IVF - follow the repeat blood cx 2- R lower tooth infection : change clinda to IV ( day 2 ) f/u with dentist as out pt . 3- polysubstance use : cocain and Marijuana . counseled 4- : per DIRECTOR OF STRATEGIC MARKETING
--- NOTE | 2016-07-21 16:42 | PN ---
Physical Exam: SUBJECTIVE: Patient seen and examined. She is feeling better today. Denies fever, chills, her pain subsized. She removed her IV. She was informed that taking her abx is important. OBJECTIVE: Vital Signs Period Temp Pulse Resp BP Sys/Rivera Pulse Ox Last 24 Hr 97.5 F-98.9 F 84-112 18-18 92-108/53-68 GENERAL: The patient is awake, alert, and fully oriented, in no acute distress. HEAD: Normal with no signs of trauma. EYES: extraocular movements intact, sclera anicteric, conjunctiva clear. No ptosis. ENT: oropharynx clear without exudates, moist mucous membranes. NECK: Trachea midline, full range of motion, supple. LUNGS: clear to auscultation bilaterally, no wheezes, no crackles, no accessory muscle use. HEART: Regular rate and rhythm, S1, S2 without murmur, rub or gallop. ABDOMEN: Gravid, soft, nontender, nondistended, normoactive bowel sounds, no guarding, no rebound, no hepatosplenomegaly, no masses, CVA on right side. EXTREMITIES: no edema. NEUROLOGICAL: Normal speech, gait not observed. PSYCH: Normal mood, normal affect. SKIN: Warm, dry, normal turgor, no rashes or lesions noted Laboratory Results - last 24 hr 07/21/16 07/21/16 08:45 08:45 WBC 12.9 H D RBC 2.76 L Hgb 8.9 L Hct 26.6 L MCV 96.6 H MCHC 33.5 RDW 12.3 Plt Count 149 MPV 8.0 Neutrophils % 75.4 Lymphocytes % 11.6 D Monocytes % 11.3 H Eosinophils % 1.6 D Basophils % 0.1 Sodium 139 Potassium 3.6 Chloride 109 H Carbon Dioxide 22 Anion Gap 8 BUN 4 L D Creatinine 0.4 L D Random Glucose 74 D Calcium 7.9 L Active Medications Generic Name Dose Route Start Last Admin Trade Name Freq PRN Reason Stop Dose Admin Acetaminophen 325 mg 07/19/16 02:09 07/21/16 14:24 Tylenol - PO 325 mg Q6H PRN Administration PAIN Acetaminophen 650 mg 07/19/16 02:10 07/20/16 17:12 Tylenol - PO 650 mg Q6H PRN Administration FEVER OR PAIN Parenteral Electrolytes 1,000 mls @ 125 mls/hr 07/19/16 01:00 07/20/16 11:04 Plasma-Lyte 148 - IV Not Given ASDIR DAVID Clindamycin Phosphate 50 mls @ 100 mls/hr 07/21/16 10:00 07/21/16 12:01 Cleocin 300 Mg Premix Ivpb IVPB 100 mls/hr Q8H-IV DAVID Administration Cefazolin Sodium 50 mls @ 100 mls/hr 07/21/16 18:00 Ancef 1gm Ivpb (Pre-Docked) IVPB Q8H-IV DAVID Ibuprofen 600 mg 07/21/16 00:18 07/21/16 09:53 Motrin - PO 600 mg Q6H PRN Administration FEVER Oxycodone HCl 5 mg 07/19/16 02:09 07/21/16 14:23 Roxicodone - PO 5 mg Q6H PRN Administration PAIN Senna/Docusate Sodium 2 tablet 07/21/16 22:00 Pericolace - PO HS PRN US kidney: No signs of hydrothorax, no acute pathology ASSESSMENT/PLAN: 25 year old female , 31 weeks who presents to the hospital with flank pain, dysuria, fever, chills for 2 days. She was found to be tychypneic, elevated WBC. She is also complaining of generalized weakness and right sided face swelling that is present for 1-2 days. She is admitted for sepsis due pyelonephritis. Sepsis due to pyelonephritis: -LA normalized -monitor VS -IVF at rate 125 ml/hr - Cefepime 2 g IV Q8H, added Clindamycin IV to cover oropharynx infection -awaiting second blood culture set -Tylenol 650 mg PO Q6h -Roxicodone 5 mg Q6h PRN Right sided face swelling: -continue Cefepime and Clindamycin -f/u with ID Hyponatremia: -cont IVF Hypopotasemia: -monitor ; -continue vit., -f/u ENVIRONMENTAL TECH recomm. -transvag. US done, WNL -consider K replacement Polysubstance abuse: -positive for cocaine and Marihuana -the pt denies taking drugs -counseling done F/E/N: NS/low Na,K/regular Dispo: We will continue to follow the patient. Thank you for this consultative opportunity. Problem List - Problems (1) with 31 completed weeks gestation Code(s): Z3A.31 - 31 WEEKS GESTATION OF (2) Pyelonephritis affecting in third trimester Code(s): O23.03 - INFECTIONS OF KIDNEY IN , THIRD TRIMESTER N12 - TUBULO-INTERSTITIAL NEPHRITIS, NOT SPCF ACUTE OR CHRONIC (3) Sepsis Code(s): A41.9 - SEPSIS, UNSPECIFIED ORGANISM Qualifiers: Sepsis type: sepsis due to unspecified organism Qualified Code(s): A41.9 - Sepsis, unspecified organism (4) Substance abuse affecting in third trimester, antepartum Code(s): O99.323 - DRUG USE COMPLICATING , THIRD TRIMESTER F19.10 - OTHER PSYCHOACTIVE SUBSTANCE ABUSE, UNCOMPLICATED Visit type - Emergency Visit Emergency Visit: Yes ED Registration Date: 07/19/16 Care time: The patient presented to the Emergency Department on the above date and was hospitalized for further evaluation of their emergent condition. - New Patient This patient is new to me today: No - Critical Care Critical Care patient: No - Discharge Referral Referred to [facility] No
[2016-07-21] MEDS: ELECTROLYTE-148 SOLN 1,000 ML IV SCH (17:39)
[2016-07-21] MEDS: CEFAZOLIN (PRE-DOCKED) 50 ML IVPB SCH (17:41)
[2016-07-21] MEDS ORDERED: SENNOSIDES/DOCUSATE COMBO (SENNA PLUS) TABLET (UD) PO PRN (22:00)
[2016-07-22] MEDS: CEFAZOLIN (PRE-DOCKED) 50 ML IVPB SCH ×3 (01:02→18:14)
[2016-07-22] MEDS: oxyCODONE HCL 5 MG TABLET PO PRN ×3 (01:55→12:04)
[2016-07-22] MEDS: CLINDAMYCIN 300 MG PREMIX IVPB 50 ML IVPB SCH ×3 (01:55→19:22)
[2016-07-22] MEDS: ACETAMINOPHEN 325 MG TABLET (FP) PO PRN ×5 (01:56→20:06)
[2016-07-22] MEDS ORDERED: oxyCODONE HCL 5 MG TABLET ONE ×2 (08:00→11:57)
[2016-07-22] MEDS ORDERED: OXYCODONE/APAP 5/325MG COMBO TABLET PO ONE (08:40)
[2016-07-22] MEDS ORDERED: oxyCODONE HCL 5 MG TABLET PO ONE (08:45)
[2016-07-22] MEDS ORDERED: ACETAMINOPHEN 325 MG TABLET (FP) PO ONE (08:45)
[2016-07-22] MEDS ORDERED: KETOROLAC TROMETHAMINE 15 MG/ML VIAL IVPUSH ONE (11:29)
--- NOTE | 2016-07-22 14:24 | PN ---
Progress Note, Physician History of Present Illness: C/O R flank pain, R lower facial pain and swelling Afebrile Denies dysuria/ hematuria - Current Medication List Current Medications: Active Medications Acetaminophen (Tylenol -) 325 mg PO Q6H PRN PRN Reason: PAIN Last Admin: 07/22/16 01:56 Dose: 325 mg Acetaminophen (Tylenol -) 650 mg PO Q6H PRN PRN Reason: FEVER OR PAIN Last Admin: 07/22/16 14:06 Dose: 650 mg Parenteral Electrolytes (Plasma-Lyte 148 -) 1,000 mls @ 125 mls/hr IV ASDIR DAVID Last Admin: 07/21/16 17:39 Dose: Not Given Clindamycin Phosphate (Cleocin 300 Mg Premix Ivpb) 50 mls @ 100 mls/hr IVPB Q8H -IV DAVID Last Admin: 07/22/16 10:25 Dose: 100 mls/hr Cefazolin Sodium (Ancef 1gm Ivpb (Pre-Docked)) 50 mls @ 100 mls/hr IVPB Q8H-IV DAVID Last Admin: 07/22/16 09:46 Dose: 100 mls/hr Ibuprofen (Motrin -) 600 mg PO Q6H PRN PRN Reason: FEVER Last Admin: 07/21/16 17:05 Dose: 600 mg Senna/Docusate Sodium (Pericolace -) 2 tablet PO HS PRN - Objective Vital Signs: Vital Signs Temperature 98.5 F 07/22/16 08:00 Pulse Rate 90 07/22/16 08:00 Respiratory Rate 22 07/22/16 08:00 Blood Pressure 108/67 07/22/16 08:00 O2 Sat by Pulse Oximetry (%) Constitutional: Yes: No Distress Eyes: Yes: Conjunctiva Clear HENT: Yes: Other (R mandibular swelling and tenderness No gingival swelling/ erythema/ discharge) Respiratory: Yes: CTA Bilaterally Gastrointestinal: Yes: Normal Bowel Sounds, Soft, Other (+gravid uterus) Genitourinary: Yes: CVA Tenderness - Right Labs: CBC, BMP 07/21/16 08:45 07/21/16 08:45 INR, PTT INR 1.10 (0.82-1.09) 07/19/16 13:52 Assessment/Plan Gram Negative bacteremia/ sepsis secondary to source Acute R pyelonephritis Probable R lower dental abscess 31 w IUP Continue cefazolin 2gm IVPB q8h needs 7d course of IV antibiotics followed by 7d course of po (Keflex 50mg qid) Dental evaluation for probable dental abscess Plan discussed with patient
--- NOTE | 2016-07-22 15:30 | PN ---
Teaching Attending Note Name of Resident: Lydia Cutler ATTENDING PHYSICIAN STATEMENT I saw and evaluated the patient. I reviewed the resident's note and discussed the case with the resident. I agree with the resident's findings and plan as documented. SUBJECTIVE: cont to have pain in tooth. R flank pain is better . OBJECTIVE: NAD . MMM, R lower first molar with broken tooth, no discharge or erythema on gum . R lower face swelling, stable from yesterday . Oropharynx with nl appearance CV: RRR, 2/6 SM at base Lungs: CTAB ext : no edema Abd ; gravid abd, no TTP R CVA tenderness ASSESSMENT AND PLAN: 25 y/o lady with h/o substance abuse , ( 31 weeks ) , who presented with abd pain , fever , was found to have R pyelonephritis 1- Sepsis due to R pyelonephritis : WBc improved . Blood cx with and urine cx with Klebsiella species - cont cefazolin - follow the repeat blood cx 2- R lower tooth infection: with possible abscess . - cont clinda to IV ( day 3) - unfortunately no dentist is available here . - MRI to evaluate extension of infection - will start the transfer process to [facility] for appropriate treatment 3- Polysubstance use 4- : per [employer] SCHO[employer] COORDINATOR
[2016-07-22] MEDS ORDERED: oxyCODONE HCL 5 MG TABLET PO PRN (16:10)
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
--- NOTE | 2016-07-22 20:22 | HOSP ---
Subjective - Review of Symptoms Events since last encounter: spoke to transfer center , pt was declined for transfer to medicine service. spoke to Dr. Morataya from [facility], he declined the patientn . SPoke to Dr. Mckeon from [facility] . [phone]. she will get back to me if oral surgery is available . Pt is not accepted to [facility] yet. will complete MRI of the face to check for abscess Physical Examination Vital Signs: Vital Signs Temperature 98.5 F 07/22/16 17:00 Pulse Rate 78 07/22/16 17:00 Respiratory Rate 20 07/22/16 17:00 Blood Pressure 110/64 07/22/16 17:00 O2 Sat by Pulse Oximetry (%) Labs: CBC, BMP 07/21/16 08:45 07/21/16 08:45
[2016-07-22] MEDS ORDERED: DOCUSATE SODIUM 100 MG CAPSULE (FP) PO ONE (20:58)
[2016-07-22 21:00] VITALS: BP 100/53; PULSE 89; TEMP 99
== END 2016-07-22 21:55 | disposition short-term general hospital (02) | DRG 566 ==
LOC: JDEL 21:52 → JLDR 07-19 00:15 → J3W 07-19 09:55
PROVIDERS: ADMIT Obstetrics & Gynecology; ATTEND Obstetrics & Gynecology
DX: O98.813 Other maternal infectious and parasitic diseases complicating pregnancy, third trimester (principal); A41.89 Other specified sepsis; O99.323 Drug use complicating pregnancy, third trimester; O75.3 Other infection during labor; E87.1 Hypo-osmolality and hyponatremia; E87.6 Hypokalemia; Z3A.31 31 weeks gestation of pregnancy; F14.10 Cocaine abuse, uncomplicated; F12.10 Cannabis abuse, uncomplicated; K04.7 Periapical abscess without sinus
CPT/HCPCS: 36415; 59025; 76775-TC; 76801-TC; 76817-TC; 80048; 80053; 80307; 81003; 81015; 83605; 85025; 85027; 85610; 85730; 86593; 86762; 86850; 86900; 86901; 87040; 87086; 87186; 87340; 87389